=== PATIENT | female | born 2000 | race Caucasian/White ===

== ENCOUNTER 2019-03-18 21:11 | Emergency (ER) | payer BC ==
--- NOTE | 2019-03-18 21:53 | ER Document Report ---
ED Medical Screen (RME) - General Chief Complaint: Shortness Of Breath Stated Complaint: CHEST PAIN /DIFFICULTY BREATHING Time Seen by Provider: 03/18/19 21:49 Mode of Arrival: Ambulatory Information source: Patient Notes: 18-year-old female presented to ED for complaint of chest pains. She states she was diagnosed with pneumonia 4 days ago in [facility]. She was started on antibiotics cefdinir. She states she is getting worse and the pain is getting worse. She states she has not had any fever since the day they diagnosed her. Patient is alert and oriented right lung are a little diminished. Will repeat x-ray. Former smoker and used to take but no longer does. I have greeted and performed a rapid initial assessment of this patient. A comprehensive ED assessment and evaluation of the patient, analysis of test results and completion of medical decision making process will be conducted by an additional ED providers. TRAVEL OUTSIDE OF THE [place] IN LAST 30 DAYS: No Physical Exam - Vital signs Vitals: Temp Pulse Resp BP Pulse Ox 97.7 F 91 20 137/97 H 100 03/18/19 21:45 03/18/19 21:45 03/18/19 21:45 03/18/19 21:45 03/18/19 21:45 Course - Vital Signs Vital signs: Temp Pulse Resp BP Pulse Ox 97.7 F 91 20 137/97 H 100 03/18/19 21:45 03/18/19 21:45 03/18/19 21:45 03/18/19 21:45 03/18/19 21:45
[2019-03-18 22:48] LABS: ABSOLUTE EOSINOPHILS # (AUTO) 0.1 10^3/uL (0.0-0.6); ABSOLUTE LYMPHOCYTES (AUTO) 3.8 10^3/uL (0.5-4.7); ABSOLUTE MONOCYTES (AUTO) 0.8 10^3/uL (0.1-1.4); ABSOLUTE NEUT (AUTO) 4.3 10^3/uL (1.7-8.2); BASOPHILS % (AUTO) 0.5 % (0-2); EOSINOPHILS % (AUTO) 1.2 % (0-6); HEMATOCRIT 41.4 % (36.0-47.0); LYMPHOCYTES % (AUTO) 41.8 % (13-45); MEAN CORPUSCULAR HEMOGLOBIN 29.8 pg (27.0-33.4); MEAN CORPUSCULAR HGB CONC 33.8 g/dL (32.0-36.0); MEAN CORPUSCULAR VOLUME 88 fl (80-97); MONOCYTES % (AUTO) 8.8 % (3-13); PLATELET COUNT 205 10^3/uL (150-450); RED BLOOD COUNT 4.69 10^6/uL (3.72-5.28); RED CELL DISTRIBUTION WIDTH 13.2 % (11.5-14.0); SEGMENTED NEUTROPHILS % (AUTO) 47.7 % (42-78); TOTAL CELLS COUNTED % (AUTO) 100 %; WHITE BLOOD COUNT 9.1 10^3/uL (4.0-10.5)
[2019-03-18 22:51] LABS: APPEARANCE,URINE CLEAR; BILIRUBIN,URINE NEGATIVE (NEGATIVE); COLOR,URINE STRAW; GLUCOSE, URINE NEGATIVE (NEGATIVE); KETONES,URINE NEGATIVE (NEGATIVE); LEUKOCYTE ESTERASE,URINE SMALL (NEGATIVE); NITRITE,URINE NEGATIVE (NEGATIVE); PROTEIN,URINE NEGATIVE (NEGATIVE); URINE SPECIFIC GRAVITY 1.008; UROBILINOGEN,URINE NEGATIVE mg/dL (<2.0)
--- NOTE | 2019-03-18 23:08 | RADIOLOGY REPORT (SQ) ---
XR CHEST 2 VIEWS CLINICAL STATEMENT: Recent diagnosis of pneumonia increased chest pain COMPARISON: None FINDINGS: Cardiomediastinal silhouette is within normal limits. There is no focal lung consolidation or pleural effusion. No evidence of pulmonary edema or pneumothorax. IMPRESSION: No acute cardiopulmonary disease.
[2019-03-18 23:41] LABS: ALBUMIN 4.4 g/dL (3.5-5.0); ALKALINE PHOSPHATASE 77 U/L (38-126); ANION GAP 9 (5-19); ASPARTATE AMINO TRANSFERASE 23 U/L (14-36); BILIRUBIN,DIRECT 0.1 mg/dL (0.0-0.4); BILIRUBIN,TOTAL 0.4 mg/dL (0.2-1.3); BLOOD UREA NITROGEN 7 mg/dL (7-20); CALCIUM 9.9 mg/dL (8.4-10.2); CARBON DIOXIDE 26 mmol/L (22-30); CHLORIDE 103 mmol/L (98-107); CREATINE KINASE 63 U/L (30-135); GLUCOSE 93 mg/dL (75-110); POTASSIUM 4.2 mmol/L (3.6-5.0); TOTAL PROTEIN 7.4 g/dL (6.3-8.2)
[2019-03-18 23:49] LABS: CREATINE KINASE MB 0.25 ng/mL (<4.55)
[2019-03-18 23:51] LABS: TROPONIN I < 0.012 ng/mL
[2019-03-19] MEDS ORDERED: DEXAMETHASONE SOD PHOS INJ 10 MG/1 ML VIAL IM ONE (01:31)
--- NOTE | 2019-03-19 01:34 | ER Document Report ---
ED Respiratory Problem - General Chief Complaint: Shortness Of Breath Stated Complaint: CHEST PAIN /DIFFICULTY BREATHING Time Seen by Provider: 03/18/19 21:49 Mode of Arrival: Ambulatory Notes: Patient is a 18-year-old female that comes to the emergency department with chief complaint of congestion, cough, shortness of breath. She states she was recently seen at a different hospital ([facility]) had a negative chest x-ray but had a CAT scan to rule out blood clot and this diagnosed her with pneumonia. She states she is allergic to doxycycline and they placed her on cefdinir. She states she has been on this for about 3 days. She states she still has frequent coughing, states she is concerned she is not getting better and she feels like she might be getting worse. She denies any recent fevers. She states she has been coughing for the better part of a month. She states she stopped smoking 2 weeks ago. She denies any diagnosed medical problems. TRAVEL OUTSIDE OF THE [place] IN LAST 30 DAYS: No - Related Data Allergies/Adverse Reactions: acetaminophen [From Percocet] Allergy (Verified 03/19/19 00:25) amoxicillin [From Augmentin] Allergy (Verified 03/19/19 00:25) clavulanic acid [From Augmentin] Allergy (Verified 03/19/19 00:25) codeine Allergy (Verified 03/19/19 00:23) morphine Allergy (Verified 03/19/19 00:25) oxycodone [From Percocet] Allergy (Verified 03/19/19 00:25) Penicillins Allergy (Verified 03/19/19 00:25) Sulfa (Sulfonamide Antibiotics) Allergy (Verified 03/19/19 00:25) tramadol Adverse Reaction (Verified 03/19/19 00:25) Past Medical History - General Information source: Patient - Social History Smoking Status: Former Smoker Frequency of alcohol use: None Drug Abuse: None Lives with: Family Family History: Reviewed & Not Pertinent Patient has suicidal ideation: No Patient has homicidal ideation: No Psychiatric Medical History: Reports: Hx Depression Past Surgical History: Reports: Hx Appendectomy, Hx Cholecystectomy, Hx Gynecologic Surgery, Hx Orthopedic Surgery - both knees, Hx Tonsillectomy Review of Systems - Review of Systems Constitutional: See HPI EENT: See HPI Cardiovascular: No symptoms reported Respiratory: See HPI Gastrointestinal: No symptoms reported Genitourinary: No symptoms reported Female Genitourinary: No symptoms reported Musculoskeletal: No symptoms reported Skin: No symptoms reported Hematologic/Lymphatic: No symptoms reported Neurological/Psychological: No symptoms reported Physical Exam - Vital signs Vitals: Temp Pulse Resp BP Pulse Ox 97.7 F 91 20 137/97 H 100 03/18/19 21:45 03/18/19 21:45 03/18/19 21:45 03/18/19 21:45 03/18/19 21:45 - Notes Notes: GENERAL: Alert, interacts well. No acute distress. HEAD: Normocephalic, atraumatic. EYES: Pupils equal, round, and reactive to light. Extraocular movements intact. ENT: Oral mucosa moist, tongue midline. Oropharynx unremarkable. Airway patent. Mild sinus congestion, nontender sinuses NECK: Full range of motion. Supple. Trachea midline. LUNGS: Occasional mild cough, clear lungs, no tachypnea, no respiratory distress. Speaks in full sentences. HEART: Regular rate and rhythm. No murmur ABDOMEN: Soft, non-tender. Non-distended. Bowel sounds present in all 4 quadrants. GENITOURINARY: Deferred EXTREMITIES: Moves all 4 extremities spontaneously. No edema, normal radial and dorsalis pedis pulses bilaterally. No cyanosis. BACK: no cervical, thoracic, lumbar midline tenderness. No saddle anesthesia, normal distal neurovascular exam. Moves all extremities in full range of motion. NEUROLOGICAL: Alert and oriented x3. Patient frequently stutters. Cranial nerves II through XII grossly intact. PSYCH: Normal affect, normal mood. SKIN: Warm, dry, normal turgor. No rashes or lesions noted. Course - Re-evaluation Re-evalutation: Patient is actually very well-appearing on my evaluation. Overall presentation is consistent with resolving bronchitis, no evidence of worsening pneumonia with patient on current antibiotic. She is not taking steroids. She is not wheezing, she has no hypoxia, unremarkable vital signs, I did review work-up from triage including CBC, chemistry, urinalysis, chest x-ray, and troponin. These were all unremarkable. Discussed the patient. Patient is reassured. We discussed different options, she does not want to take prednisone, she was given a dose of dexamethasone instead. Encourage patient to continue with her smoking cessation behavior, discussed follow-up instructions and return precautions. Patient and significant other state understanding and agreement. Stable at time of discharge. - Vital Signs Vital signs: Temp Pulse Resp BP Pulse Ox 97.8 F 76 20 119/83 100 03/19/19 01:54 03/19/19 01:54 03/19/19 01:54 03/19/19 01:54 03/19/19 01:54 - Laboratory Result Diagrams: 03/18/19 22:25 03/18/19 22:25 Laboratory results interpreted by me: 03/18/19 22:25 Ur Leukocyte Esterase SMALL H Discharge - Discharge Clinical Impression: Cough, Shortness of breath, Sinus congestion Chest pain Qualifiers: Chest pain type: unspecified Qualified Code(s): R07.9 - Chest pain, unspecified Condition: Stable Disposition: HOME, SELF-CARE Additional Instructions: Your evaluation is consistent with a resolving bronchitis. There is no evidence of worsening pneumonia. Your oxygen saturation is 100%, your evaluation is reassuring. You have been given steroids in the form of Decadron to help improve your symptoms, your symptoms should gradually resolve. I do recommend that you continue and complete your cefdinir and continue NyQuil at night. Ibuprofen can help with pain. Follow-up with primary care. Come back if you are worse including developing new fevers, worsening difficulty breathing, vomiting, or any other concerning or worsening symptoms.
[2019-03-19 01:56] VITALS: BP 119/83
--- NOTE | 2019-03-19 08:14 | EKG REPORT ---
SEVERITY:- NORMAL ECG - SINUS RHYTHM : Confirmed by: Holly Putnam MD 19-Mar-2019 08:13:39
== END 2019-03-19 02:25 | disposition home or self-care (01) ==
LOC: ER 21:11
DX: R06.02 Shortness of breath (principal); R05 Cough; R07.9 Chest pain, unspecified; R09.81 Nasal congestion
CPT/HCPCS: 93005; 36415; 82553; 82550; 84703; 85025; 80053; 81001; 84484; 71046; 93010; J1100; 96374; 99285

== ENCOUNTER 2020-04-05 22:22 | Emergency (ER) | payer BC, OTHER ==
--- NOTE | 2020-04-05 22:41 | ER Document Report ---
ED Medical Screen (RME) - General Stated Complaint: ABDOMINAL PAIN,BLOODY STOOL Time Seen by Provider: 04/05/20 22:39 Notes: HPI: 19-year-old female presenting essentially for a second opinion of abdominal pain that she has been having over the last month. Has history of IBS and endometriosis. Has history of cholecystectomy and appendectomy. 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 States she had CT imaging and x-rays there states she was told she might have constipation was given several enemas and discharged but still having rectal bleeding when she wipes still complaining of generalized abdominal pain and having nausea vomiting. Has not had a fever. PHYSICAL EXAMINATION: Mild generalized tenderness on palpation. Rectal exam deferred in triage. I have greeted and performed a rapid initial assessment of this patient. A comprehensive ED assessment and evaluation of the patient, analysis of test results and completion of medical decision making process will be conducted by an additional ED providers. TRAVEL OUTSIDE OF THE [place] IN LAST 30 DAYS: No - Related Data Allergies/Adverse Reactions: acetaminophen [From Percocet] Allergy (Verified 03/19/19 00:25) amoxicillin [From Augmentin] Allergy (Verified 03/19/19 00:25) clavulanic acid [From Augmentin] Allergy (Verified 03/19/19 00:25) codeine Allergy (Verified 03/19/19 00:23) morphine Allergy (Verified 03/19/19 00:25) oxycodone [From Percocet] Allergy (Verified 03/19/19 00:25) Penicillins Allergy (Verified 03/19/19 00:25) Sulfa (Sulfonamide Antibiotics) Allergy (Verified 03/19/19 00:25) tramadol Adverse Reaction (Verified 03/19/19 00:25) Past Medical History Psychiatric Medical History: Reports: Hx Depression Past Surgical History: Reports: Hx Appendectomy, Hx Cholecystectomy, Hx Gynecologic Surgery, Hx Orthopedic Surgery - both knees, Hx Tonsillectomy Physical Exam - Vital signs Vitals: Temp Pulse Resp BP Pulse Ox 98.3 F 75 18 118/73 97 04/05/20 22:31 04/05/20 22:31 04/05/20 22:31 04/05/20 22:31 04/05/20 22:31 Course - Vital Signs Vital signs: Temp Pulse Resp BP Pulse Ox 98.3 F 75 18 118/73 97 04/05/20 22:31 04/05/20 22:31 04/05/20 22:31 04/05/20 22:31 04/05/20 22:31
[2020-04-05 23:23] LABS: ABSOLUTE EOSINOPHILS # (AUTO) 0.1 10^3/uL (0.0-0.6); ABSOLUTE LYMPHOCYTES (AUTO) 2.8 10^3/uL (0.5-4.7); ABSOLUTE MONOCYTES (AUTO) 0.7 10^3/uL (0.1-1.4); ABSOLUTE NEUT (AUTO) 3.1 10^3/uL (1.7-8.2); BASOPHILS % (AUTO) 0.3 % (0-2); EOSINOPHILS % (AUTO) 2.1 % (0-6); HEMATOCRIT 39.1 % (36.0-47.0); HEMOGLOBIN 13.2 g/dL (12.0-15.5); LYMPHOCYTES % (AUTO) 41.4 % (13-45); MEAN CORPUSCULAR HEMOGLOBIN 30.3 pg (27.0-33.4); MEAN CORPUSCULAR HGB CONC 33.9 g/dL (32.0-36.0); MEAN CORPUSCULAR VOLUME 90 fl (80-97); MONOCYTES % (AUTO) 9.8 % (3-13); PLATELET COUNT 142 10^3/uL (150-450); RED BLOOD COUNT 4.36 10^6/uL (3.72-5.28); RED CELL DISTRIBUTION WIDTH 13.1 % (11.5-14.0); SEGMENTED NEUTROPHILS % (AUTO) 46.4 % (42-78); TOTAL CELLS COUNTED % (AUTO) 100 %; WHITE BLOOD COUNT 6.7 10^3/uL (4.0-10.5)
[2020-04-05 23:36] LABS: INTERNATIONAL RATION (INR) 0.95; PROTHROMBIN TIME 12.9 SEC (11.4-15.4)
[2020-04-05 23:36] LABS: APPEARANCE,URINE SLIGHTLY-CLOUDY; BILIRUBIN,URINE NEGATIVE (NEGATIVE); COLOR,URINE YELLOW; GLUCOSE, URINE NEGATIVE (NEGATIVE); KETONES,URINE TRACE mg/dL (NEGATIVE); LEUKOCYTE ESTERASE,URINE NEGATIVE (NEGATIVE); NITRITE,URINE NEGATIVE (NEGATIVE); PROTEIN,URINE NEGATIVE (NEGATIVE); URINE SPECIFIC GRAVITY 1.026
[2020-04-05 23:45] LABS: ALBUMIN 4.5 g/dL (3.5-5.0); ALKALINE PHOSPHATASE 68 U/L (38-126); ANION GAP 8 (5-19); ASPARTATE AMINO TRANSFERASE 19 U/L (14-36); BILIRUBIN,DIRECT 0.3 mg/dL (0.0-0.4); BILIRUBIN,TOTAL 0.6 mg/dL (0.2-1.3); BLOOD UREA NITROGEN 8 mg/dL (7-20); CALCIUM 9.7 mg/dL (8.4-10.2); CARBON DIOXIDE 25 mmol/L (22-30); CHLORIDE 106 mmol/L (98-107); GLUCOSE 96 mg/dL (75-110); POTASSIUM 4.1 mmol/L (3.6-5.0); TOTAL PROTEIN 7.5 g/dL (6.3-8.2)
--- NOTE | 2020-04-06 00:55 | ER Document Report ---
ED GI/ - General Chief Complaint: Abdominal Pain Stated Complaint: ABDOMINAL PAIN,BLOODY STOOL Time Seen by Provider: 04/05/20 22:39 Primary Care Provider: REJI TREJO MD [ACTIVE STAFF] - Follow up as needed LUDY HERNANDEZ MD [ACTIVE STAFF] - Follow up as needed DIMITRI LEDBETTER MD [ACTIVE STAFF] - Follow up as needed CELE DOYLE PA-C [Primary Care Provider] - Follow up as needed Mode of Arrival: Ambulatory Information source: Patient Notes: Patient presents complaining abdominal pain for the past month. Patient states that she was recently at the [facility] 3 days ago and was told that she had an ileus and was discharged. Patient states she followed up the next day and got admitted for a possible obstruction. Patient states that she was given several enemas and has had diarrhea for the past 3 days. Patient states that she has noticed blood in her stool. Patient states she did just start her period as well and is not certain if it may not be from the vaginal bleeding. Patient does complain of some nausea. Patient is very anxious about her condition and is requesting a second opinion. TRAVEL OUTSIDE OF THE [place] IN LAST 30 DAYS: No - HPI Patient complains to provider of: Abdominal pain, Diarrhea. No: Vomiting Onset: Other - 3 days Timing/Duration: Persistent Quality of pain: Cramping Pain Level: 3 Location: LLQ Vaginal bleeding (Compared to normal period): Similar Associated symptoms: Blood in stool, Diarrhea, Nausea. denies: Urinary hesitancy, Urinary frequency, Urinary retention, Urinary urgency, Vaginal discharge, Vomiting Exacerbated by: Denies Relieved by: Denies Similar symptoms previously: Yes Recently seen / treated by doctor: Yes - Related Data Allergies/Adverse Reactions: acetaminophen [From Percocet] Allergy (Verified 03/19/19 00:25) amoxicillin [From Augmentin] Allergy (Verified 03/19/19 00:25) clavulanic acid [From Augmentin] Allergy (Verified 03/19/19 00:25) codeine Allergy (Verified 03/19/19 00:23) morphine Allergy (Verified 03/19/19 00:25) oxycodone [From Percocet] Allergy (Verified 03/19/19 00:25) Penicillins Allergy (Verified 03/19/19 00:25) Sulfa (Sulfonamide Antibiotics) Allergy (Verified 03/19/19 00:25) tramadol Adverse Reaction (Verified 03/19/19 00:25) Past Medical History - General Information source: Patient - Social History Smoking Status: Never Smoker Frequency of alcohol use: None Drug Abuse: None Lives with: Family Family History: Reviewed & Not Pertinent Pulmonary Medical History: Reports: Hx Asthma Renal/ Medical History: Reports: Other - Endometriosis GI Medical History: Reports: Hx Irritable Bowel Psychiatric Medical History: Reports: Hx Anxiety, Hx Depression Past Surgical History: Reports: Hx Appendectomy, Hx Cholecystectomy, Hx [employer] ecologic Surgery, Hx Orthopedic Surgery - both knees, Hx Tonsillectomy Review of Systems - Review of Systems Constitutional: Recent illness - Recent ileus. denies: Fever EENT: No symptoms reported Cardiovascular: No symptoms reported Respiratory: No symptoms reported Gastrointestinal: No symptoms reported, Abdominal pain, Diarrhea, Nausea, Rectal bleeding. denies: Vomiting Genitourinary: No symptoms reported. denies: Dysuria, Flank pain Female Genitourinary: Vaginal bleeding. denies: Musculoskeletal: No symptoms reported. denies: Back pain Skin: No symptoms reported Hematologic/Lymphatic: No symptoms reported Neurological/Psychological: No symptoms reported Physical Exam - Vital signs Vitals: Temp Pulse Resp BP Pulse Ox 98.3 F 75 18 118/73 97 04/05/20 22:31 04/05/20 22:31 04/05/20 22:31 04/05/20 22:31 04/05/20 22:31 - Notes Notes: PHYSICAL EXAMINATION: GENERAL: Well-appearing and in no acute distress. HEAD: Atraumatic, normocephalic. EYES: sclera anicteric, conjunctiva are normal. ENT: nares patent. Moist mucous membranes. NECK: Normal range of motion, supple without lymphadenopathy LUNGS: CTAB and equal. No wheezes rales or rhonchi. HEART: Regular rate and rhythm without murmurs ABDOMEN: Soft, left lower quadrant tenderness, suprapubic tenderness, normal bowel sounds, no guarding. EXTREMITIES: Normal range of motion, no pitting edema. No cyanosis. BACK: No CVA tenderness NEUROLOGICAL: Cranial nerves grossly intact. PSYCH: Normal mood, normal affect. SKIN: Warm, Dry, normal turgor, no rashes or lesions noted - Rectal Tenderness: No Stool: Heme negative, See lab result Hemorrhoids: None Notes: KARISSA Andrews as standby Course - Re-evaluation Re-evalutation: 04/06/20 02:00 Patient very anxious regarding her symptoms. Patient has repeatedly called the nurse to room due to concerns about possible blood in her stool. Rectal exam was performed and Hemoccult was negative. Provider attempted to reassure patient regarding this finding. 04/06/20 03:27 Patient without any fever or leukocytosis. Patient CT findings does show some thickening of the rectosigmoid colon. Patient with stable H&H and no evidence of rectal bleeding. Will start patient on Cipro and Flagyl and advised to follow-up with a embedded software development engineer. Patient nontoxic in appearance and otherwise stable for discharge. - Vital Signs Vital signs: Temp Pulse Resp BP Pulse Ox 97.7 F 74 14 123/77 100 04/06/20 03:37 04/06/20 03:37 04/06/20 03:37 04/06/20 03:37 04/06/20 03:37 - Laboratory Result Diagrams: 04/05/20 23:00 04/05/20 23:00 Laboratory results interpreted by me: 04/05/20 04/05/20 23:00 23:08 Plt Count 142 L Urine Ketones TRACE H Urine Blood LARGE H Urine Urobilinogen 4.0 H - Diagnostic Test Radiology reviewed: Reports reviewed Discharge - Discharge Clinical Impression: Colitis, Anxiety about health Condition: Stable Disposition: HOME, SELF-CARE Instructions: Abdominal Pain ([facility]), Antinausea Medication ([facility]), Anxiety ([facility]), Ciprofloxacin ([facility]), Colitis, Nonspecific ([facility]), Metronidazole ([facility]) Additional Instructions: Return immediately for any new or worsening symptoms: Fever, abdominal pain, rectal bleeding or any concerning new symptoms Followup with your primary care provider, call tomorrow to make a followup appointment Follow-up with a embedded software development engineer, call tomorrow to make a follow-up appointment Prescriptions: Ciprofloxacin HCl [Cipro 500 mg Tablet] 500 mg PO BID #20 tablet Metronidazole [Flagyl 500 mg Tablet] 500 mg PO TID #30 tablet Promethazine HCl [Phenergan 25 mg Tablet] 25 mg PO Q6H PRN #10 tablet PRN Reason: Referrals: CELE DOYLE PA-C [Primary Care Provider] - Follow up as needed REJI TREJO MD [ACTIVE STAFF] - Follow up as needed LUDY HERNANDEZ MD [ACTIVE STAFF] - Follow up as needed DIMITRI LEDBETTER MD [ACTIVE STAFF] - Follow up as needed
--- NOTE | 2020-04-06 02:29 | RADIOLOGY REPORT (SQ) ---
CLINICAL INDICATION: abd pain rectal bleeding. . TECHNIQUE: Contrast enhanced spiral axial CT imaging was obtained of the abdomen and pelvis with multiplanar reconstructions. This exam was performed according to our departmental dose-optimization program, which includes automated exposure control, adjustment of the mA and/or kV according to patient size and/or use of iterative reconstruction techniques. COMPARISON: None. CORRELATION: None. FINDINGS: Abdomen: The lung bases are grossly clear. The heart is of normal size. No evidence of pleural or pericardial fluid. The liver is homogeneous. Tiny cyst right lobe of the liver. The gallbladder is surgically absent. The pancreas is unremarkable. The spleen is unremarkable. The adrenals are unremarkable. The kidneys there is a mild bilateral hydronephrosis. Symmetric nephrograms. No hydroureter or calculi are seen. There is no evidence of free air. No free fluid. No bulky adenopathy. Abdominal aorta is nonaneurysmal. Pelvis: The bowel is nonobstructed. The colon is unopacified with oral contrast distally. Pelvic contents are unremarkable. The appendix is normal. Mild thickening rectosigmoid. Visualized bones are unremarkable. IMPRESSION: Mild hydronephrosis/fullness to the collecting systems bilaterally. There are symmetric nephrograms. There is mild thickening rectosigmoid. A focal inflammatory process in this distribution could have this appearance.
[2020-04-06] MEDS ORDERED: NORMAL SALINE 1000 ML 1,000 ML IV ONE (03:17)
[2020-04-06] MEDS ORDERED: CIPROFLOXACIN HCL 500 MG TABLET PO ONE (03:19)
[2020-04-06] MEDS ORDERED: METRONIDAZOLE 500 MG TABLET PO ONE (03:19)
[2020-04-06 03:41] VITALS: BP 123/77
== END 2020-04-06 04:12 | disposition home or self-care (01) ==
LOC: ER 22:22
DX: K52.9 Noninfective gastroenteritis and colitis, unspecified (principal); F41.9 Anxiety disorder, unspecified; R10.32 Left lower quadrant pain; R10.814 Left lower quadrant abdominal tenderness; R11.0 Nausea; J45.909 Unspecified asthma, uncomplicated; Z90.49 Acquired absence of other specified parts of digestive tract; Z88.8 Allergy status to other drugs, medicaments and biological substances; Z88.0 Allergy status to penicillin; Z88.6 Allergy status to analgesic agent; Z88.5 Allergy status to narcotic agent; Z88.2 Allergy status to sulfonamides
CPT/HCPCS: 99285; 96360; 36415; 83690; 84703; 85025; 85610; 82270; 80053; 81001; 74177; J7030

== ENCOUNTER 2020-04-06 14:43 | Emergency (ER) | payer OTHER ==
[2020-04-06] MEDS ORDERED: ONDANSETRON HCL INJ/PF 4 MG/2 ML SDV IV ONE ×2 (15:45→21:37)
--- NOTE | 2020-04-06 15:46 | ER Document Report ---
ED Medical Screen (RME) - General Chief Complaint: Nausea/Vomiting/Diarrhea Stated Complaint: REVISIT/NAUSEA,VOMITING,DIARRHEA Time Seen by Provider: 04/06/20 15:06 Primary Care Provider: CELE DOYLE PA-C [Primary Care Provider] - Follow up as needed TRAVEL OUTSIDE OF THE [place] IN LAST 30 DAYS: No - HPI Notes: 04/06/20 15:45 19-year-old female to the emergency department with persistent nausea, vomiting, diarrhea and diffuse abdominal pain. She states this is been going on for over 1 week. She states that she was admitted to [facility] in the past week for possible bowel obstruction and given MiraLAX. She states she was discharged home and her pain persisted so he came to the emergency department last night. She had a CT scan done at that time. She states that it says that her colon was expanding. She was put on oral Flagyl. She states that despite starting the Flagyl she is started to have worsening pain with her diarrhea and vomiting. Denies any fevers or chills. Denies any possible COVID-19 contacts. I performed a brief medical screening exam on the patient determined that the patient needs further evaluation and management by main side provider. I have placed initial orders to help expedite care. - Related Data Allergies/Adverse Reactions: acetaminophen [From Percocet] Allergy (Verified 03/19/19 00:25) amoxicillin [From Augmentin] Allergy (Verified 03/19/19 00:25) clavulanic acid [From Augmentin] Allergy (Verified 03/19/19 00:25) codeine Allergy (Verified 03/19/19 00:23) morphine Allergy (Verified 03/19/19:25) oxycodone [From Percocet] Allergy (Verified 03/19/19:25) Penicillins Allergy (Verified 03/19/19:25) Sulfa (Sulfonamide Antibiotics) Allergy (Verified 03/19/19 00:25) tramadol Adverse Reaction (Verified 03/19/19:25) Past Medical History Pulmonary Medical History: Reports: Hx Asthma GI Medical History: Reports: Hx Irritable Bowel Psychiatric Medical History: Reports: Hx Anxiety, Hx Depression Past Surgical History: Reports: Hx Appendectomy, Hx Cholecystectomy, Hx Gynecologic Surgery, Hx Orthopedic Surgery - both knees, Hx Tonsillectomy Doctor's Discharge - Discharge Referrals: CELE DOYLE PA-C [Primary Care Provider] - Follow up as needed
[2020-04-06 16:56] LABS: ABSOLUTE EOSINOPHILS # (AUTO) 0.1 10^3/uL (0.0-0.6); ABSOLUTE LYMPHOCYTES (AUTO) 1.8 10^3/uL (0.5-4.7); ABSOLUTE MONOCYTES (AUTO) 0.6 10^3/uL (0.1-1.4); ABSOLUTE NEUT (AUTO) 4.3 10^3/uL (1.7-8.2); BASOPHILS % (AUTO) 0.2 % (0-2); EOSINOPHILS % (AUTO) 1.1 % (0-6); HEMATOCRIT 40.7 % (36.0-47.0); HEMOGLOBIN 13.9 g/dL (12.0-15.5); LYMPHOCYTES % (AUTO) 26.1 % (13-45); MEAN CORPUSCULAR HEMOGLOBIN 30.3 pg (27.0-33.4); MEAN CORPUSCULAR VOLUME 89 fl (80-97); MONOCYTES % (AUTO) 8.6 % (3-13); PLATELET COUNT 158 10^3/uL (150-450); RED BLOOD COUNT 4.57 10^6/uL (3.72-5.28); RED CELL DISTRIBUTION WIDTH 13.3 % (11.5-14.0); TOTAL CELLS COUNTED % (AUTO) 100 %; WHITE BLOOD COUNT 6.8 10^3/uL (4.0-10.5)
[2020-04-06 17:17] LABS: ALBUMIN 4.3 g/dL (3.5-5.0); ALKALINE PHOSPHATASE 65 U/L (38-126); ANION GAP 8 (5-19); ASPARTATE AMINO TRANSFERASE 20 U/L (14-36); BILIRUBIN,DIRECT 0.2 mg/dL (0.0-0.4); BILIRUBIN,TOTAL 0.5 mg/dL (0.2-1.3); BLOOD UREA NITROGEN 6 mg/dL (7-20); CALCIUM 9.8 mg/dL (8.4-10.2); CARBON DIOXIDE 26 mmol/L (22-30); CHLORIDE 106 mmol/L (98-107); GLUCOSE 112 mg/dL (75-110); POTASSIUM 4.3 mmol/L (3.6-5.0)
--- NOTE | 2020-04-06 18:53 | ER Document Report ---
ED General - General Chief Complaint: Nausea/Vomiting/Diarrhea Stated Complaint: REVISIT/NAUSEA,VOMITING,DIARRHEA Time Seen by Provider: 04/06/20 15:06 Primary Care Provider: CELE DOYLE PA-C [PHYSICIAN HEATER ENGINEER HELPER] - Follow up as needed TRAVEL OUTSIDE OF THE [place] IN LAST 30 DAYS: No - HPI Notes: 19-year-old female presents with abdominal pain. Patient reports she has been h aving intermittent abdominal pain for the past month. She states that she has been told she has irritable bowel, denies being diagnosed with inflammatory bowel such as Crohn's or ulcerative colitis. She states that she has been seen and evaluated multiple times for this in the past month. Most recently on she went to [facility] where she was diagnosed with ileus and told that she was "backed up", was prescribed MiraLAX. She then returned to [facility] on Monday, states that she was admitted and told that she possibly might have a bowel obstruction, however was treated with enemas and MiraLAX. States she had 3 enemas total. Since the enemas she has had some rectal bleeding when wiping. She reports she has had diarrhea, has discontinued use of MiraLAX. She was seen here in the emergency department yesterday, states she was diagnosed with thickening of her colon. Was prescribed Flagyl/Cipro, however has not had these filled yet. She reports continued pain and nausea, no vomiting, and has been tolerating p.o. Additionally is on her menstrual cycle, states this is due to breakthrough bleeding from not having her control pills for the past 3 days. Additionally per reports she has been diagnosed with endometriosis. Also states she is on a 3-month course of vaginal metronidazole for BV, she has been on this for 1 month. Patient also states that she wants to see GI right now and have a colonoscopy done, states that she has been told it will take 2 weeks to see as an outpatient. She is also requesting admission and abdominal MRI. Patient also states that she has never seen a physician, only ELE[employer]GE[employer]. Patient additionally expresses anxiety over fact that her is in [place] on assignment, she states that she wants him to come home to deal with her medical situation. Additionally reports she has a history of vasovagal syncope. - Related Data Allergies/Adverse Reactions: acetaminophen [From Percocet] Allergy (Verified 03/19/19 00:25) amoxicillin [From Augmentin] Allergy (Verified 03/19/19 00:25) clavulanic acid [From Augmentin] Allergy (Verified 03/19/19 00:25) codeine Allergy (Verified 03/19/19 00:23) morphine Allergy (Verified 03/19/19 00:25) oxycodone [From Percocet] Allergy (Verified 03/19/19 00:25) Penicillins Allergy (Verified 03/19/19 00:25) Sulfa (Sulfonamide Antibiotics) Allergy (Verified 03/19/19 00:25) tramadol Adverse Reaction (Verified 03/19/19 00:25) Past Medical History - General Information source: Patient, Parent - Social History Smoking Status: Unknown if Ever Smoked Chew tobacco use (# tins/day): No Drug Abuse: None Family History: Reviewed & Not Pertinent Patient has homicidal ideation: No Pulmonary Medical History: Reports: Hx Asthma GI Medical History: Reports: Hx Irritable Bowel Psychiatric Medical History: Reports: Hx Anxiety, Hx Depression Past Surgical History: Reports: Hx Appendectomy, Hx Cholecystectomy, Hx Gyneco logic Surgery, Hx Orthopedic Surgery - both knees, Hx Tonsillectomy Review of Systems - Review of Systems Constitutional: denies: Fever EENT: No symptoms reported Cardiovascular: denies: Chest pain Respiratory: denies: Short of breath Gastrointestinal: Abdominal pain, Diarrhea, Nausea, Rectal bleeding. denies: Vomiting Genitourinary: denies: Dysuria Female Genitourinary: Vaginal bleeding Musculoskeletal: No symptoms reported Skin: No symptoms reported Neurological/Psychological: No symptoms reported Physical Exam - Vital signs Vitals: Temp Pulse Resp BP Pulse Ox 98.2 F 94 18 126/76 H 99 04/06/20 17:54 04/06/20 17:54 04/06/20 17:54 04/06/20 17:54 04/06/20 17:54 - General General appearance: Appears well, Alert, Anxious In distress: None - HEENT Head: Normocephalic, Atraumatic Eyes: No: Scleral icterus Extraocular movements intact: Yes Pupils: PERRL - Respiratory Breath sounds: Normal - Cardiovascular Rhythm: Regular - Abdominal Inspection: Normal Distension: No distension Bowel sounds: Normal Tenderness: Nontender. No: Guarding, Rebound Notes: Tolerates exam well - Rectal Stool: Heme negative. No: Bloody Hemorrhoids: None Notes: Rectal exam performed. She had some blood towards the perineum area, appears to be menstrual in origin. No hemorrhoid or fissure visible. Had mild tenderness to rectum during digital palpation, overall tolerated exam well. Brown stool, heme negative. - Extremities General upper extremity: Normal inspection General lower extremity: Normal inspection - Neurological Neuro grossly intact: Yes Cognition: Normal Orientation: AAOx4 Notes: Seen ambulatory with steady gait, no acute distress during ambulation - Psychological Associated symptoms: Anxious - Skin Skin Temperature: Warm Course - Re-evaluation Re-evalutation: 19-year-old female here with abdominal pain ongoing x1 month. Multiple evaluations in the past 5 days for same. On exam she is nontoxic appearing, anxious and intermittently tearful, able to calm down appropriately. Her abdome n is nondistended, normal active bowel sounds, no focal areas of tenderness. Rectal exam did not exhibit any gross blood and stool was negative for occult blood. Visualize her ambulating with a steady gait, did not appear to be in pain from ambulation. She is afebrile, vital signs stable. Seen in our emergency department yesterday, reviewed work-up, no leukocytosis, CT abdomen had some mild rectosigmoid thickening. Mother is at bedside, I discussed all of the findings from yesterday. I discussed multiple reasons for this, my main suspicion is that the multiple enemas have caused the mild rectosigmoid inflammation. I additionally discussed that potentially it could be related to endometriosis or irritable bowel, inflammatory bowel possible potentially. Will treat symptomatically with Toradol and Bentyl, fluids. I discussed with patient that given her normal CT abdomen within the last 24 hours, repeat would not be indicated. However she is resistant to this and demanding CT, I discussed with her it is a risk to repeat, however she would like this done. Will order with IV contrast. I discussed with her that feel that it could be reasonable for her to see GI as an outpatient. She does not have a current emergent indication to see GI. Per patient referral to GI is in the works via [facility]. Additionally patient requesting that I have her brought home, I discussed with her that this will need to be addressed again with the primary care doctor as I do not have an emergent reason for him to return tonight. 04/06/20 19:48 Per radiology, patient unable to have CT scan with dye until 2 AM, additionally if she did have any evidence of an abscess it would have been picked up yesterday. Given that I have a low suspicion for change in intra-abdominal pathology, will scan with oral contrast only. 04/06/20 21:05 No leukocytosis or left shift. No acute anemia, hemoglobin stable from previous check. Electrolytes within normal limits. Creatinine within normal limits. No elevation of LFTs or lipase. Urine contaminated with menstrual blood. negative. 04/06/20 21:39 Per nursing, patient is tolerating oral contrast, no vomiting. She stated to delfino fernandez that she was having some nausea, she requested 8 mg of IV Zofran because 4 mg does not work. Ordered. 04/06/20 23:27 CT abdomen has resulted. Again demonstrated mild wall thickening of the r ectosigmoid colon. No free air or free fluid. 04/07/20 00:03 I discussed the overall reassuring work-up with patient and her mother. Patient again expressed concern about when she will get better. I had a lengthy discussion with her that her body needs time to recover and recommendations for continued supportive care. I again reiterated the need to follow-up with the primary care doctor to assure that the proper referrals are in place. Return precautions given, patient stable at time of discharge. - Vital Signs Vital signs: Temp Pulse Resp BP Pulse Ox 97.5 F 71 16 128/87 H 100 04/06/20 23:00 04/06/20 23:00 04/06/20 23:00 04/06/20 23:00 04/06/20 23:00 - Laboratory Result Diagrams: 04/06/20 16:50 04/06/20 16:50 Laboratory results interpreted by me: 04/06/20 04/06/20 16:50 19:00 BUN 6 L Glucose 112 H Urine Protein 30 H Urine Ketones 20 H Urine Blood LARGE H - Diagnostic Test Radiology reviewed: Image reviewed, Reports reviewed Discharge - Discharge Clinical Impression: Colitis Condition: Stable Disposition: HOME, SELF-CARE Additional Instructions: Please call your primary care doctor tomorrow to discuss your recent hospital urgency department visits, please also discuss referral to GI. I have provided contact information for a GI practice here in [place]. Do not use MiraLAX. Please try to stick to a bland diet. You may continue to use Bentyl and Zofran, I have wrote for these medications. Return to the emergency department for any concerning worsening symptoms. Prescriptions: Dicyclomine HCl [Bentyl 10 mg Capsule] 1 cap PO TID #30 cap Ondansetron [Zofran Odt 4 mg Tablet] 1 - 2 tab PO Q4H PRN #15 tab.rapdis PRN Reason: For Nausea/Vomiting Referrals: CELE DOYLE PA-C [PHYSICIAN HEATER ENGINEER HELPER] - Follow up as needed REJI TREJO MD [ACTIVE STAFF] - Follow up as needed
[2020-04-06 19:19] LABS: APPEARANCE,URINE CLOUDY; BILIRUBIN,URINE NEGATIVE (NEGATIVE); COLOR,URINE YELLOW; GLUCOSE, URINE NEGATIVE (NEGATIVE); KETONES,URINE 20 mg/dL (NEGATIVE); LEUKOCYTE ESTERASE,URINE NEGATIVE (NEGATIVE); NITRITE,URINE NEGATIVE (NEGATIVE); PROTEIN,URINE 30 mg/dL (NEGATIVE); URINE SPECIFIC GRAVITY 1.012; UROBILINOGEN,URINE NEGATIVE mg/dL (<2.0)
[2020-04-06] MEDS ORDERED: RINGERS SOLUTION,LACTATED 1,000 ML IV ONE (19:26)
[2020-04-06] MEDS ORDERED: KETOROLAC TROMETHAMINE INJ/PF 30 MG/1 ML SDV IV ONE (19:26)
--- NOTE | 2020-04-06 23:12 | RADIOLOGY REPORT (SQ) ---
EXAM DESCRIPTION: CT ABDOMEN PELVIS WITHOUT IV CONTRAST COMPLETED DATE/TME: 04/06/2020 19:27 CLINICAL HISTORY: 19 years, Female, LLQ pain, worse from yesterday, sigmoid inflam COMPARISON: Prior CT from today's date TECHNIQUE: 331 Images stored on PACS. All CT scanners at this facility use dose modulation, iterative reconstruction, and/or weight based dosing when appropriate to reduce radiation dose to as low as reasonably achievable (ALARA). [facility]: Dose Right [facility]: CareDose [facility]: Dose Right [facility]: Teradose 4D [facility]: Smart ParasitX LIMITATIONS: None. FINDINGS: Limited evaluation of the lung bases is unremarkable. Osseous structures are grossly intact. The liver, spleen, adrenal glands, pancreas are unremarkable. Status post cholecystectomy. Oral contrast was utilized. There is no evidence for bowel obstruction. Wall thickening in the region of the rectosigmoid colon is again suggested with some equivocal surrounding inflammation. No free air or free fluid. Question follicular change to the ovaries bilaterally. The appendix is not well seen. No pericecal inflammation. Stable fullness of the renal pelves bilaterally which may in part reflect extrarenal pelvis formation. No obstructing calculus. Urinary bladder is not distended. IMPRESSION: Again there is suggestion of mild rectosigmoid colon wall thickening and equivocal surrounding inflammation. Findings may reflect minor nonspecific colitis. Slight fullness of the renal pelves bilaterally without an obstructing calculus. Findings may reflect bilateral extrarenal pelves. TECHNICAL DOCUMENTATION: Quality ID # 436: Final reports with documentation of one or more dose reduction techniques (e.g., Automated exposure control, adjustment of the mA and/or kV according to patient size, use of iterative reconstruction technique) copyright 2011 [employer]- All Rights Reserved
[2020-04-07 01:05] VITALS: BP 127/80
== END 2020-04-07 00:46 | disposition home or self-care (01) ==
LOC: ER 14:43
DX: K52.9 Noninfective gastroenteritis and colitis, unspecified (principal); K62.5 Hemorrhage of anus and rectum; R11.0 Nausea; J45.909 Unspecified asthma, uncomplicated; N80.9 Endometriosis, unspecified; N76.0 Acute vaginitis; B96.89 Other specified bacterial agents as the cause of diseases classified elsewhere; Z79.2 Long term (current) use of antibiotics; Z88.8 Allergy status to other drugs, medicaments and biological substances; Z88.0 Allergy status to penicillin; Z88.6 Allergy status to analgesic agent; Z88.5 Allergy status to narcotic agent; Z88.2 Allergy status to sulfonamides
CPT/HCPCS: 99285; 96361; 96374; 96375; 36415; 83690; 85025; 81025; 80053; 81001; 74176; J1885; J2405; J7120

== ENCOUNTER 2020-04-14 07:29 | Day surgery (SDC) | payer OTHER ==
[2020-04-14] MEDS ORDERED: PROPOFOL INJ 200 MG/20 ML VIAL IV ONE (07:53)
--- NOTE | 2020-04-14 10:17 | Operative Report ---
Operative Report DATE OF SURGERY: 04/14/20 Operative Report: The risk, benefits and alternatives of the procedure including the risk of bleeding, perforation requiring surgery have been explained to the patient in detail and informed consent has been obtained. Patient is placed in a left, lateral decubital position. Timeout was called. Propofol medication is administered. Rectal examination is done which did not reveal any masses, tears or fissures. An Olympus videoscope was introduced into the patient's rectum. Scope was then carefully advanced all the way to the cecum with intubation of the terminal ileum. Scope was then sequentially withdrawn via the various segments of the colon including the ascending colon, hepatic flexure, transverse colon, splenic flexure, descending colon and finally into the rectosigmoid portions of the colon. Retroflexion maneuver is performed. The risks benefits and alternatives of the procedure explained to the patient in detail and informed consent is obtained.A GIF Olympus video scope was inserted into the patient's mouth and hypopharynx, the esophagus is identified intubated and insufflated ,the scope was then advanced through the esophagus stomach and duodenum, retroflexion maneuver is done ,the esophagus stomach and first and second portions of the duodenum examined PREOPERATIVE DIAGNOSIS: Blood in stool POSTOPERATIVE DIAGNOSIS: Gastritis status post biopsy. Terminal ileitis status post biopsy OPERATION: Colonoscopy with biopsy. EGD with biopsy SURGEON: DMIITRI LEDBETTER ANESTHESIA: LMAC TISSUE REMOVED OR ALTERED: As noted above. COMPLICATIONS: None. ESTIMATED BLOOD LOSS: None. INTRAOPERATIVE FINDINGS: As noted above. PROCEDURE: Patient tolerated the procedure well. No immediate postprocedure complications are noted. Patient is discharged in good condition. Discharge date 04/14/2020. Discharge diet: Regular. Discharge activity: Regular. 2 to 3-week follow-up to discuss findings. Patient is instructed to call the office or proceed to the emergency room should there be any further problems or questions. Wait on the pathology.
[2020-04-14 10:32] VITALS: BP 110/71
== END 2020-04-14 11:00 | disposition home or self-care (01) ==
LOC: END 07:29
PROVIDERS: ATTEND Internal Medicine Gastroenterology
DX: K52.9 Noninfective gastroenteritis and colitis, unspecified (principal); K31.9 Disease of stomach and duodenum, unspecified; K62.5 Hemorrhage of anus and rectum; Z03.818 Encounter for observation for suspected exposure to other biological agents ruled out; Z79.899 Other long term (current) drug therapy; Z88.5 Allergy status to narcotic agent; Z88.2 Allergy status to sulfonamides; J45.909 Unspecified asthma, uncomplicated
CPT/HCPCS: 43239; 45380; 87635; 88342 ×2; 88305 ×2; 00813; J2704; C9803; 813